=== PATIENT | female | born 1970 | race Caucasian/White ===

== ENCOUNTER 2018-07-14 14:17 | Emergency (ER) | payer OTHER ==
[~2018-07-14] VITALS: Ht 175.3 cm; Wt 79.4 kg
[~2018-07-14 14:17] MED LIST: BUPR100; CYCL10 PO; IBUP800 PO; METPRE4DP PO; OXYC5; Percocet 5-3251 EACH PO
[2018-07-14] MEDS ORDERED: ALPR.5 PO (16:30)
[2018-07-14] MEDS ORDERED: Percocet 10-321 EACH PO (17:07)
== END 2018-07-14 17:26 | disposition home or self-care (01) ==
LOC: ER 14:17
DX: S43.015A Anterior dislocation of left humerus, initial encounter (principal); S96.912A Strain of unspecified muscle and tendon at ankle and foot level, left foot, initial encounter; S50.02XA Contusion of left elbow, initial encounter; W10.9XXA Fall (on) (from) unspecified stairs and steps, initial encounter; Z88.0 Allergy status to penicillin; Z79.899 Other long term (current) drug therapy
CPT/HCPCS: 23650; 73030; 73070; 73610; 99283-25

== ENCOUNTER 2018-07-25 12:10 | Day surgery (SDC) | payer OTHER ==
[~2018-07-25] VITALS: Ht 175.3 cm; Wt 90.7 kg
[~2018-07-25 12:10] MED LIST changes: +ALPR.5 PO; +Percocet 10-321 EACH PO
--- NOTE | 2018-07-25 12:25 | NUR ---
INTO [facility] ADMISSION STARTED TO UNIT
--- NOTE | 2018-07-25 14:36 | NUR ---
07/25/18 1436 Clarke Haley [facility] CATH PLACED BY [facility] GUILLORY
--- NOTE | 2018-07-25 17:20 | NUR ---
ASSUMED CARE OF PATEINT FROM [facility] GUILLORY. SPOUSE JUST FINISHED ASSISTING PATIENT TO DRESS, SITTIN UP IN CHAIR. PT JUST FINISHED HAVING SMALL EMISIS, MEDICATED BY MARIA ESTHER GUILLORY WITH REGLAN. PATIENT AND SPOUSE REOPORT NO INSTUCTIONS GIVEN TO THEM ON EXCERSISES BY DR. SUTTON.
--- NOTE | 2018-07-25 18:08 | NUR ---
CALLED TO CLARIFY DISCHARGE ORDERS FROM DR. SUTTON. SEE NEW ORDERS. EXTRA AQUACEL DESSING AND ICE PACKS GIVEN TO PATEINT FOR HOME USE. DIAGRAM GIVEN TO PATIENT TO SHOW EXTERNAL ROTATION, NOT ALLOWED. PENDULUM EXCERCISES INFORMATION GIVEN TO PATEINT. EXPLAINED TO PATINET TO BEND ARM NOT AT SHOULDER JOINT BUT AT ELBOW,HAND AND FINGER TO HELP KEEP JOINTS FROM STIFFENING. PATIENT AND SPOUSE REPORT UNDERSTANDING OF CARE, DENIES QUESTIONS OR CONCERNS RELATED TO DISCHARGE. PATIENT REPORT TOLERABLE PAIN, AND NO REPEAT OF NAUSEA. Discharged via wheelchair to private car for ride home.
== END 2018-07-25 23:07 | disposition home or self-care (01) ==
LOC: ORSCMMR 12:10
PROVIDERS: Orthopaedic Surgery
PROC: 0RQK0ZZ Repair Left Shoulder Joint, Open Approach (ICD-10-PCS; principal; 2018-07-25 12:30)
DX: S43.005A Unspecified dislocation of left shoulder joint, initial encounter (principal); Z79.899 Other long term (current) drug therapy
CPT/HCPCS: C1713; J0171; J0690; J0735; J1100; J1885; J2250; J2405; J2710; J2765; J2795; J3010; J7120